=== PATIENT | male | born 1990 | race Caucasian/White ===

== ENCOUNTER 2021-07-20 21:59 | Emergency (ER) | payer OTHER ==
[~2021-07-20] VITALS: Ht 193 cm; Wt 72.6 kg
[2021-07-20] MEDS ORDERED: CEPHALEXIN500 MG PO (23:23)
[2021-07-20] MEDS ORDERED: BACTRIM DS TAB1 EACH PO (23:23)
== END 2021-07-20 23:34 | disposition home or self-care (01) ==
LOC: ED 21:59
DX: T80.29XA Infection following other infusion, transfusion and therapeutic injection, initial encounter (principal); L03.221 Cellulitis of neck
CPT/HCPCS: 99283